=== PATIENT | male | born 1960 | race Caucasian/White ===

== ENCOUNTER 2016-04-29 09:25 | Day surgery (SDC) | payer OTHER ==
[~2016-04-29] VITALS: Ht 180.3 cm; Wt 102.0 kg
[~2016-04-29 09:25] MED LIST: ALPR1TAB7 PO; ASCO1500 PO; CALC-858 PO; FINA5TAB9 PO; LEVO88TA4 PO; MTH10T PO; OXYC5CAP4 PO
[2016-04-29] MEDS ORDERED: fentaNYL-PF 50 mCg/mL 2 mL Inj ONE (09:26)
[2016-04-29] MEDS ORDERED: Propofol 10,000 mCg/mL 20 mL Inj ONE (09:26)
[2016-04-29 09:52] VITALS: BP 149/83; PULSE 70; RESP 16; O2SAT 98
[2016-04-29] MEDS: Lactated Ringer's 1,000 ML IV ONE ×2 (10:05→10:32)
--- NOTE | 2016-04-29 10:21 | PCM.HPANE ---
Patient Data Surgeon Admitting Provider: Attending Provider:Scotty Andre MD Primary Care Physician:Brandon Butler MD Other Provider:[facility] [facility] Reason for Visit Barretts Esophagus Ht/WT & BMI Body Mass Index Allergies Coded Allergies: Penicillins (Verified Allergy, Mild, Rash, 04/29/16) Past Anesthesia History Anesthesia History: Denies:: Abnormal Airway, Anesthesia Reactions, Difficult Intubation, Fam Anesthesia Reaction, Fam Malignant Hypertherm, Malignant Hyperthermia Diabetes History Hx Diabetes?: No MRSA MRSA: No Medications Reported Medications oxyCODONE 5 Mg Capsule5 Mg PO Q4H PRN For Pain Ref 0 10/24/14 Methadone 10 Mg Tab30 Mg PO Q6 Ref 0 10/24/14 Levothyroxine 88 Mcg [id number] Mcg PO DAILY 30 Days Ref 0 10/24/14 Calcium Carb & Cit/Vitamin D3 (Calcium + D3 ER Tablet)1 Each Tablet.er1 Each PO DAILY 10/24/14 Ascorbic Acid (Vitamin C)1,500 Mg Tablet.er1,000 Mg PO DAILY 10/24/14 Alprazolam 1 Mg Tablet1 Mg PO TID PRN For Anxiety 30 Days Ref 0 10/24/14 Discontinued Reported Medications Finasteride 5 Mg Tablet5 Mg PO DAILY 30 Days Ref 0 10/24/14 History HEENT History: Positive for:: Hearing Problem Denies:: Abnormal Airway Difficult Intubation Hx of Heart Problems?: Yes Cardiovascular History: Positive for:: Hypertension ("HISTORY, BUT NO LONGER") Hx of Respiratory Problem?: No Neurological History: Denies:: CVA Hx of GI Problems?: Yes Gastrointestinal History: Positive for:: Gastroesphageal Reflux Psycho Social History: Positive for:: Anxiety Hx Surgeries?: Yes (ORAL SURGERY) Hx Any Other Health Problems?: Yes Hx Diabetes: No Hx Alcohol Use: Yes (BUT NOT CURRENTLY) Stop/Bang Risk Assessment Category Category 1A: Patient has history of documented sleep apnea, and HAS NOT received any narcotic, sedative or anesthesia administration during this stay. Category 1B: Patient has history of documented sleep apnea, and HAS received any narcotic , sedative or anesthesia administration during this stay Category 2: Patient has SUSPECTED Obstructive Sleep Apnea, and HAS received any narcotic , sedative or anesthesia administration during this stay. Category 3: Patient has SUSPECTED Obstructive Sleep Apnea and HAS NOT received narcotic, sedative or anesthesia administration during this stay. Category 4: Outpatient in Procedural Areas with known sleep apnea or who screen positive for High Risk via the STOP/BANG questionnaire. Exam Exam General Appearance: Alert, Oriented X3, Cooperative, No Acute Distress HEENT/AIRWAY: MP 2 Lungs: Clear to Auscultation Heart: Exam Unremarkable Plan Impression Patient chart reviewed, patient interviewed and anesthestic plan with risks, benefits, and alternatives discussed, and informed consent obtained. NPO Status: > 8 hrs ASA Physical Status: ASA3 Severe Disease Anesthetic Plan: MAC Bene/Risks/Altern/Consents: Yes HP Complete Prior to Induction: Yes Jos Rose MD Apr 29, 2016 07:58
[2016-04-29 10:39] VITALS: BP 113/71; PULSE 69; RESP 16; O2SAT 96
[2016-04-29 10:49] VITALS: BP 132/82; PULSE 58; RESP 16; O2SAT 96
--- NOTE | 2016-04-29 11:12 | ENDO ---
[address] [address] ENDOSCOPY PROCEDURE PATIENT: ROSALVA YORK : 1960 MR#: [id number] ADMIT: 04/29/2016 JOB ID: [id number] DATE: 04/29/2016 PROCEDURE: Esophagogastroduodenoscopy with biopsies. INDICATIONS: A 55-year-old male with short segment Perdomo's returning for surveillance. EQUIPMENT: Standard upper endoscope. SEDATION: Monitored anesthesia as provided by Dr. Jos Rose. COMPLICATIONS: None identified. PROCEDURAL INFORMATION: After the risks and benefits were explained, written and verbal informed consent was obtained. The patient was brought into the endoscopy suite and placed into the left lateral decubitus position. Sedation was achieved as above. The scope was introduced into the mouth through the bite block, and advanced under direct visualization through the oropharynx, esophagus, stomach, and onto the second portion of the duodenum. The scope was slowly withdrawn to carefully examine the mucosa for any defects or lesions. Retroflexed views were accomplished in the stomach. The stomach was decompressed. The scope removed from the patient who tolerated the procedure well. FINDINGS: 1. Duodenum: No significant pathology from the bulb through to the second portion. 2. Stomach: No ulcers, no mass lesions. No outlet obstruction. Retroflexed views of the LES were unremarkable. No significant gastric pathology appreciated. 3. Esophagus: The squamocolumnar junction seemed to extend up into the tubular esophagus ever so slightly and two tongues in the 2 o'clock and 7 o'clock locations. These were probably less than a centimeter above the level of the GE junction which was at about 41 cm from the incisors. Biopsies x2 were acquired from these tongues and submitted for histopathology. No other abnormalities were appreciated throughout the esophagus. I did not appreciate any nodularity, and no acute erosive changes throughout the small tongues of Perdomo's. There was a subtle sliding hiatal hernia appreciated. ENDOSCOPIC DIAGNOSES: 1. Hiatal hernia. 2. Short Perdomo's. RECOMMENDATIONS: 1. Await histopathology. 2. If non dysplastic Perdomo's is confirmed, repeat esophagogastroduodenoscopy three years' time (with anesthesia). 3. Continue anti-reflux regimen. The patient is encouraged to recognized that the DGL can contribute to elevated blood pressures.
--- NOTE | 2016-04-30 11:16 | PATH ---
SURGICAL PATHOLOGY Attending Physician:Hung Kraft CASE STATUS: Signed Out PATIENT NAME: ROSALVA YORK PID: [id number] : 1960 DATE COLLECTED:04/29/2016 15:45 SPECIMEN: Esophagus, Biopsy CLINICAL HISTORY: DISTAL ESOPHAGUS BIOPSY FINAL DIAGNOSIS: Distal Esophagus, Biopsy: Perdomo' s esophagus within squamocolumnar junctional mucosa with mild chronic esophagitis. Negative for dysplasia and malignancy. ICD10 K22.7 GROSS DESCRIPTION: The specimen is received in one formalin filled container labeled with the patient's name, sublabeled "distal esophagus" and consists of 2 portions of tissue which aggregate to 0.3 x 0.3 x 0.2 CM. The specimen is entirely submitted in one cassette. 04/29/2016 [facility] ICD-9 CODES: CPT CODES: 1: 89519 Electronically Signed Out Frakno Grant MD, PhD [facility] [address], [place] [address] Technical component performed at [facility], [facility] [address], [address]
== END 2016-04-29 23:59 | disposition home or self-care (01) ==
LOC: END 09:25
PROVIDERS: ATTEND Internal Medicine Gastroenterology
DX: K22.70 Barrett's esophagus without dysplasia (principal); K44.9 Diaphragmatic hernia without obstruction or gangrene; K21.0 Gastro-esophageal reflux disease with esophagitis; I10 Essential (primary) hypertension; F41.9 Anxiety disorder, unspecified; E03.9 Hypothyroidism, unspecified; B18.2 Chronic viral hepatitis C; N40.1 Benign prostatic hyperplasia with lower urinary tract symptoms; F11.20 Opioid dependence, uncomplicated; G89.29 Other chronic pain; Z87.891 Personal history of nicotine dependence
CPT/HCPCS: 43239; J2250; J7120